=== PATIENT | male | born 1985 | race African-American/Black ===

== ENCOUNTER 2018-01-06 10:10 | Emergency (ER) | payer MEDICAID ==
[~2018-01-06] VITALS: Ht 170.2 cm; Wt 70.0 kg
[2018-01-06 10:11] VITALS: BP 124/86
== END 2018-01-06 10:35 | disposition left against medical advice (07) ==
LOC: ER 10:10
DX: Z53.21 Procedure and treatment not carried out due to patient leaving prior to being seen by health care provider (principal)

== ENCOUNTER 2018-01-06 14:56 | Emergency (ER) | payer MEDICAID ==
[~2018-01-06] VITALS: Ht 175.3 cm; Wt 65.0 kg
[2018-01-06] MEDS ORDERED: OLANZAPINE 5MG TABLET ODT PO ONE (15:30)
[2018-01-06 16:41] LABS: *BENZODIAZEPINES SCREEN URINE NEGATIVE (NEGATIVE); *COCAINE SCREEN URINE PRESUMTIVE POSITIVE (NEGATIVE); METHADONE URINE SCREEN NEGATIVE (NEGATIVE); OPIATES URINE SCREEN NEGATIVE (NEGATIVE); PHENCYCLIDINE URINE SCREEN NEGATIVE (NEGATIVE)
[2018-01-06 16:42] LABS: *AMPHETAMINES SCREEN URINE PRESUMTIVE POSITIVE (NEGATIVE); *BARBITURATES SCREEN URINE NEGATIVE (NEGATIVE); CANNABINOID URINE SCREEN PRESUMTIVE POSITIVE (NEGATIVE)
[2018-01-06 17:42] LABS: BASOPHILS % 0.6 % (0.0-2.0); EOSINOPHILS % 0.1 % (0.0-5.0); HEMATOCRIT. 41.7 % (42.0-52.0); HEMOGLOBIN. 14.1 g/dL (14.0-18.0); LYMPHOCYTES % 16.7 % (20.0-50.0); MEAN CORPUSCULAR HEMOGLOBIN 29.6 pg (28.0-32.0); MEAN CORPUSCULAR VOLUME 87.3 fL (80.0-94.0); MEAN PLATELET VOLUME 8.9 fl (7.4-10.4); MONOCYTES % 10.7 % (2.0-8.0); NEUTROPHILS % 71.9 % (40.0-76.0); PLATELET 160 x1000/uL (130-400); RED BLOOD CELL COUNT 4.78 mill/uL (4.7-6.1); RED CELL DISTRIBUTION WIDTH 14.5 % (11.6-14.6)
[2018-01-06 17:48] LABS: CHLORIDE 106 mEq/L (98-107)
[2018-01-06 17:52] LABS: ETHANOL BLOOD < 10 mg/dL
[2018-01-07 07:26] VITALS: BP 109/63
== END 2018-01-07 07:48 | disposition home or self-care (01) ==
LOC: ER 15:13
DX: F23 Brief psychotic disorder (principal); F19.10 Other psychoactive substance abuse, uncomplicated
CPT/HCPCS: 36415; 80053; 80305; 85025; 99284; G0482

== ENCOUNTER 2021-07-11 21:34 | Emergency (ER) | payer MEDICAID ==
[~2021-07-11] VITALS: Ht 180.3 cm; Wt 68.0 kg
[2021-07-12 00:20] LABS: HEMATOCRIT. 46.2 % (42.0-52.0); HEMOGLOBIN. 15.2 g/dL (14.0-18.0); MEAN CORPUSCULAR HEMOGLOBIN 27.9 pg (28.0-32.0); MEAN CORPUSCULAR VOLUME 84.9 fL (80.0-94.0); MEAN PLATELET VOLUME 8.8 fl (7.4-10.4); PLATELET 227 x1000/uL (130-400); RED BLOOD CELL COUNT 5.44 mill/uL (4.7-6.1); RED CELL DISTRIBUTION WIDTH 15.1 % (11.6-14.6)
[2021-07-12 00:33] LABS: CHLORIDE 105 mEq/L (98-107)
[2021-07-12 00:38] LABS: ETHANOL BLOOD < 10 mg/dL
[2021-07-12 00:52] LABS: CLARITY URINE CLEAR (CLEAR); COLOR URINE YELLOW (YELLOW); KETONES URINE 2+ (NEGATIVE); LEUKOCYTE ESTERASE URINE NEGATIVE (NEGATIVE); NITRITE URINE NEGATIVE (NEGATIVE); OCCULT BLOOD URINE NEGATIVE (NEGATIVE); PROTEIN URINE NEGATIVE (NEGATIVE); SPECIFIC GRAVITY URINE 1.033 (1.005-1.030)
[2021-07-12 01:10] LABS: *BENZODIAZEPINES SCREEN URINE NEGATIVE (NEGATIVE); METHADONE URINE SCREEN NEGATIVE (NEGATIVE)
[2021-07-12 01:11] LABS: *AMPHETAMINES SCREEN URINE PRESUMTIVE POSITIVE (NEGATIVE); *BARBITURATES SCREEN URINE NEGATIVE (NEGATIVE); *COCAINE SCREEN URINE NEGATIVE (NEGATIVE); CANNABINOID URINE SCREEN PRESUMTIVE POSITIVE (NEGATIVE); OPIATES URINE SCREEN NEGATIVE (NEGATIVE); PHENCYCLIDINE URINE SCREEN NEGATIVE (NEGATIVE)
[2021-07-12 05:01] LABS: PLATELET ESTIMATE NORMAL
[2021-07-12 09:39] VITALS: BP 120/68
== END 2021-07-12 09:40 | disposition home or self-care (01) ==
LOC: ER 21:34
DX: F15.10 Other stimulant abuse, uncomplicated (principal); F14.10 Cocaine abuse, uncomplicated; F16.10 Hallucinogen abuse, uncomplicated; F12.10 Cannabis abuse, uncomplicated; F41.9 Anxiety disorder, unspecified
CPT/HCPCS: 36415; 80053; 80305; 80320; 81003; 84484; 85025; 99285; G0480

== ENCOUNTER 2021-08-15 01:57 | Emergency (ER) | payer MEDICAID ==
[~2021-08-15] VITALS: Ht 177.8 cm; Wt 63.0 kg
[2021-08-15] MEDS ORDERED: CEFTRIAXONE SODIUM 500 MG/VIAL IM ONE (02:30)
[2021-08-15] MEDS ORDERED: LIDOCAINE HCL 1% 20ML VIAL (Pyxis) INJ INFIL ONE (02:30)
[2021-08-15] MEDS ORDERED: METR-167 MT (04:00)
[2021-08-15] MEDS ORDERED: DOXY100C5 MT (04:00)
[2021-08-15 05:33] VITALS: BP 118/75
[2021-08-18 19:09] LABS: NEISSERIA GONORRHOEAE NAA Negative (Negative)
== END 2021-08-15 05:36 | disposition home or self-care (01) ==
LOC: ER 01:57
DX: A64 Unspecified sexually transmitted disease (principal); A59.9 Trichomoniasis, unspecified; F14.10 Cocaine abuse, uncomplicated
CPT/HCPCS: 87491; 87591; 96372; 99283; J0696; J3490; Z7610